=== PATIENT | female | born 2000 | race Caucasian/White ===

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

== ENCOUNTER 2019-01-09 17:35 | Outpatient (CLI) | payer OTHER ==
--- NOTE | 2019-01-10 13:30 | MRI Report ---
Reason: PAIN IN LT KNEE Procedure Date: 01/09/2019 Accession Number: [id number] / [id number] Procedure: MRI - Knee LT W/O CPT Code: Final Report FULL RESULT: EXAM: LEFT KNEE MRI WITHOUT CONTRAST EXAM DATE: 01/09/2019 06:37 PM. CLINICAL HISTORY: Left knee pain. Previous meniscal repair. COMPARISON: 03/06/2017. TECHNIQUE: Multiplanar, multisequence T1-weighted and fluid-sensitive sequences of the knee without contrast. Other: None. FINDINGS: Bones: No fractures or subluxations. No marrow edema. No bone lesions. Articular Cartilage: The articular cartilage in the medical compartment is mildly thinned. The lateral and patellofemoral articular cartilage is intact. Medial Meniscus: The medial meniscus is intact. Lateral Meniscus: At least a partial horizontal tear of the posterior horn/body junction remains and intersects the inferior articular surface (601/16; series 801/18). Cruciate Ligaments: The anterior and posterior cruciate ligaments are intact. Collateral Ligaments: The medial collateral and lateral collateral ligamentous structures are intact. Tendons: The quadriceps, patellar, semimembranosus, and popliteus tendons are unremarkable. Musculature: No edema or fatty atrophy. Other: No effusion. No popliteal cyst. No loose bodies. The medial and lateral retinacula are intact. The subcutaneous tissues and fat pads are unremarkable. IMPRESSION: 1. Mild medial chondromalacia. 2. A portion of the horizontal tear of the posterior horn/body of the lateral meniscus remains but it is less prominent than on the prior examination. [facility]
== END 2019-01-09 17:36 | disposition home or self-care (01) ==
LOC: DI 17:35
PROVIDERS: ATTEND Orthopaedic Surgery
DX: M94.262 Chondromalacia, left knee (principal); S83.282A Other tear of lateral meniscus, current injury, left knee, initial encounter

== ENCOUNTER 2020-01-09 18:40 | Outpatient (CLI) | payer OTHER ==
--- NOTE | 2020-01-09 21:38 | Ultrasound Report ---
PROCEDURE: Retroperitoneal INDICATIONS: RECURRENT UTI TECHNIQUE: Real-time scanning was performed of the retroperitoneal organs, with image documentation. COMPARISON: None. FINDINGS: Kidneys: Kidneys are normal in size. Right kidney measures 9.6 cm long; left kidney measures 9.3 cm long. Right renal cortical thickness is 2.1 cm; left renal cortical thickness is 2.0. cm. No solid masses, hydronephrosis, or nephrolithiasis. Miscellaneous: No free abdominal fluid. Bilateral ureteral jets are visualized. No abnormal post vo id residual. IMPRESSION: Source of recurrent urinary tract infections is not found. No hydronephrosis or nephrolithiasis is se en. Reviewed by: Joshua Coffey MD on 01/09/2020 9:37 PM PST Approved by: Joshua Coffey MD on 01/09/2020 9:37 PM PST Station ID: [id number]
== END 2020-01-09 18:41 | disposition home or self-care (01) ==
LOC: DI 18:40
PROVIDERS: ATTEND Physician Assistant
DX: N39.0 Urinary tract infection, site not specified (principal)

== ENCOUNTER 2020-11-17 08:00 | Outpatient (CLI) | payer OTHER | END 2020-11-17 23:59 | disposition home or self-care (01) | LOC: LAB 08:00 | PROVIDERS: ATTEND Family Medicine | DX: R30.0 Dysuria (principal) | CPT/HCPCS: 87086; 87181 ==

== ENCOUNTER 2020-11-17 17:31 | Outpatient (CLI) | payer OTHER ==
[2020-11-18 00:25] LABS: BACTERIAL VAGINOSIS DNA NEGATIVE (NEGATIVE); CANDIDA GLABRATA DNA NEGATIVE (NEGATIVE); CANDIDA GROUP DNA NEGATIVE (NEGATIVE); CANDIDA KRUSEI DNA NEGATIVE (NEGATIVE); TRICHOMONAS VAGINALIS DNA NEGATIVE (NEGATIVE)
[2020-11-18 01:30] LABS: CHLAMYDIA TRACHOMATIS DNA NEGATIVE (NEGATIVE); NEISSERIA GONORRHOEAE DNA NEGATIVE (NEGATIVE); TRICHOMONAS VAGINALIS DNA NEGATIVE (NEGATIVE)
== END 2020-11-17 23:59 | disposition home or self-care (01) ==
LOC: LAB 17:31
PROVIDERS: ATTEND Family Medicine
DX: N89.8 Other specified noninflammatory disorders of vagina (principal); R30.0 Dysuria
CPT/HCPCS: 87491; 87591; 87661; 87801

== ENCOUNTER 2020-12-09 08:00 | Outpatient (CLI) | payer OTHER | END 2020-12-09 23:59 | disposition home or self-care (01) | LOC: LAB 08:00 | PROVIDERS: ATTEND Family Medicine | DX: R30.0 Dysuria (principal) | CPT/HCPCS: 87086; 87181 ==

== ENCOUNTER 2021-02-08 08:00 | Outpatient (CLI) | payer OTHER | END 2021-02-08 23:59 | LOC: LAB 08:00 | PROVIDERS: ATTEND Physician Assistant | DX: R07.0 Pain in throat (principal); Z20.822 Contact with and (suspected) exposure to COVID-19 ==

== ENCOUNTER 2021-03-19 16:00 | Outpatient (CLI) | payer OTHER ==
[2021-03-19 19:31] LABS: BILIRUBIN,URINE NEGATIVE (NEGATIVE); GLUCOSE, URINE (UA) NEGATIVE (NEGATIVE); KETONES,URINE (UA) NEGATIVE (NEGATIVE); LEUKOCYTE ESTERASE, URINE TRACE (NEGATIVE); NITRITE,URINE POSITIVE (NEGATIVE); OCCULT BLOOD,URINE NEGATIVE (NEGATIVE); PROTEIN,URINE NEGATIVE (NEGATIVE); UROBILINOGEN,URINE 0.2 (NORMAL) E.U./dL (NORMAL)
[2021-03-19 19:37] LABS: CLARITY,URINE HAZY (CLEAR)
[2021-03-19 20:48] LABS: BACTERIA,URINE Many /HPF (None Seen); RBC,URINE None Seen /HPF (0-5); SQUAMOUS EPITHELIAL CELL,UR RARE Squamous (<= Few)
== END 2021-03-19 23:59 | disposition home or self-care (01) ==
LOC: LAB.N 16:00
PROVIDERS: ATTEND Registered Nurse
DX: R30.0 Dysuria (principal)
CPT/HCPCS: 81001; 87086; 87181

== ENCOUNTER 2021-04-07 09:05 | Outpatient (CLI) | payer OTHER ==
--- NOTE | 2021-04-08 11:37 | Ultrasound Report ---
LIMITED ULTRASOUND OF LEFT BREAST AND AXILLA: 04/07/2021 CLINICAL: Palpable left breast lump. No prior exams were available for comparison. Color flow and real-time ultrasound of the left breast 4 o'clock, and axilla regions were performed. Becerra scale images of the real-time examination were reviewed. There is a 1.8 cm x 1.8 cm x 0.7 cm oval mass with a circumscribed margin in the left breast at 4 o'c lock posterior depth 7 cm from the nipple. This oval mass is hypoechoic with a well-defined boundary and posterior acoustic enhancement. This correlates as palpated and to the reported pain. Color fl ow imaging demonstrates that there is vascularity present. Patient reports that the mass is increasin g in size. No significant abnormalities were seen sonographically in the left axilla. IMPRESSION: SUSPICIOUS OF MALIGNANCY The 1.8 cm x 1.8 cm x 0.7 cm oval mass in the left breast resembles a fibroadenoma and is at a low emanuel spicion for malignancy. An ultrasound guided biopsy is recommended. Exam findings were discussed with the patient by Dr. Sullivan. This exam was interpreted at Station ID: [id number]. Electronically Signed By: Ray Sullivan M.D. slc/:04/07/2021 10:25:36 Ultrasound BI-RADS: 4a Low suspicion for malignancy BI-RADS CATEGORY: (4a) - Low Susp None [id number] Immediate follow-up LATERALITY: ()
== END 2021-04-07 09:06 | disposition home or self-care (01) ==
LOC: DI 09:05
PROVIDERS: ATTEND Surgery
DX: N63.23 Unspecified lump in the left breast, lower outer quadrant (principal)

== ENCOUNTER 2021-06-07 09:38 | Day surgery (SDC) | payer OTHER ==
[~2021-06-07 09:38] MED LIST: ceFAZolin 1 GM VIAL ONE
[2021-06-07] MEDS ORDERED: LACTATED RINGERS 1,000 ML IV ONE ×2 (09:43→12:09)
[2021-06-07] MEDS ORDERED: LIDOCAINE-MPF 2% 5 ML VIAL ONE (10:03)
[2021-06-07] MEDS ORDERED: PROPOFOL 200 MG/20 ML VIAL IVP ONE (10:03)
[2021-06-07] MEDS ORDERED: MIDAZOLAM 2 MG/2 ML VIAL ONE (10:04)
[2021-06-07] MEDS ORDERED: fentaNYL 100 MCG/2 ML VIAL ONE (10:05)
[2021-06-07 10:07] LABS: HCG UR QUAL NEGATIVE
[2021-06-07] MEDS ORDERED: ONDANSETRON 4 MG/2 ML VIAL IVP PRN ×3 (10:25→12:12)
[2021-06-07] MEDS ORDERED: ePHEDrine 50 MG/ML VIAL IVP PRN (10:28)
[2021-06-07] MEDS ORDERED: MORPHINE 2 MG/ML CARPUJECT IVP PRN (10:28)
[2021-06-07] MEDS ORDERED: HYDROmorphone 0.5 MG/0.5 ML SYRINGE IVP PRN (10:28)
[2021-06-07] MEDS ORDERED: ATROPINE ABBOJECT 1 MG/10 ML SYRINGE IVP PRN (10:28)
[2021-06-07] MEDS ORDERED: METOCLOPRAMIDE 10 MG/2 ML VIAL IVP PRN (10:28)
[2021-06-07] MEDS ORDERED: NALOXONE 0.4 MG/ML VIAL IVP PRN (10:28)
[2021-06-07] MEDS ORDERED: fentaNYL 100 MCG/2 ML VIAL IVP PRN (10:28)
--- NOTE | 2021-06-07 10:28 | ANESTHESIA ---
Pre-Anesthesia VS, & Labs - Diagnosis Left breast mass - Procedure Left breast mass excision Vital Signs: Temp Pulse Resp BP Pulse Ox 37.5 C 127 H 13 127/79 100 06/07/21 09:48 06/07/21 09:48 06/07/21 09:48 06/07/21 09:48 06/07/21 09:48 Height: 5 ft Weight (kg): 48 kg Body Mass Index: 20.6 BMI Classification: Healthy weight - NPO >8 hours - Is Patient ?: No - Lab Results Lab results reviewed: Yes Home Medications and Allergies Home Medications: Ambulatory Orders cephALEXin [Keflex] 250 mg PO DAILY 06/07/21 cephALEXin [Keflex] 250 mg PO DAILY 06/07/21 Allergies/Adverse Reactions: Allergies Allergy/AdvReac Type Severity Reaction Status Date / Time polyethylene glycol Allergy Severe Rash Verified 05/31/21 10:19 nitrofurantoin Allergy Unknown Unknown Verified 05/31/21 08:33 [From Macrobid] oxycodone [From Roxicodone] Allergy Itching Verified 06/07/21 10:17 Sulfa (Sulfonamide Allergy Rash Verified 09/23/18 01:30 Antibiotics) Anes History & Medical History - Anesthetic History Anesthesia Complications: reports: No previous complications, Post-Operative Nausea/Vomiting Family history of Anesthesia Complications: Denies Family history of Malignant Hyperthermia: Denies - Medical History Cardiovascular: reports: None Pulmonary: reports: None Gastrointestinal: reports: None Urinary: reports: None Musculoskeletal: reports: Other (knee scope x2) Endocrine/Autoimmune: reports: None Skin: reports: None Smoking Status: Never smoker Psychosocial: reports: No issues indicated History of Cancer?: No - Surgical History Orthopedic: reports: Arthroscopic surgery Exam General: Alert, Oriented x3, Cooperative Dental: WNL Mouth Openin Fingerbreadth Neck Mobility: Normal Mallampati classification: II Thyromental Distance: 4-6 cm Respiratory: Lungs clear, Normal breath sounds, No respiratory distress Cardiovascular: Regular rate Neurological: Normal speech Mental/Cognitive Status: Alert/Oriented X3, Normal for patient Cognitive Status: Within normal limits Plan Anesthesia Type: General Consent for Procedure(s) Verified and Reviewed: Yes Code Status: Attempt Resuscitation ASA classification: 1-Healthy patient Is this case an emergency?: No
[2021-06-07] MEDS ORDERED: ONDANSETRON 4 MG/2 ML VIAL ONE ×2 (10:32→11:58)
[2021-06-07] MEDS ORDERED: LACTATED RINGERS 1,000 ML IV SCH (11:00)
[2021-06-07] MEDS ORDERED: LIDOCAINE 2%-EPI 1:100000 20 ML MDV ONE (11:01)
[2021-06-07] MEDS ORDERED: BUPIVACAINE 0.25% PF 10 ML VIAL ONE (11:01)
[2021-06-07] MEDS ORDERED: LIDOCAINE 2%-EPI 1:100000 20 ML MDV SUBQ ONE (11:53)
[2021-06-07] MEDS ORDERED: BUPIVACAINE 0.25% PF 30 ML VIAL SUBQ ONE (11:54)
[2021-06-07] MEDS ORDERED: DEXAMETHASONE 4 MG/ML VIAL ONE (11:58)
[2021-06-07] MEDS ORDERED: KETOROLAC 30 MG/ML VIAL ONE (12:00)
--- NOTE | 2021-06-07 12:07 | OPERATIVE REPORT ---
Operative Report - General Procedure Date: 06/07/21 Planned Procedure: Excisional biopsy of left breast mass Pre-Op Diagnosis: Palpable mass in the left breast Procedure Performed: Excisional biopsy of left breast mass Post Op Diagnosis: Palpable mass in the left breast - Procedure Note Primary Surgeon: Chris Anesthesia Provider: DOLLY Hennessy Anesthesia Technique: General LMA, Local Pathology: 1. Left breast mass oriented and submitted in formalin 2. Additional anterior superior margin.-Not oriented, submitted in formalin. Estimated Blood Loss (mL): 5 Findings: White rubbery mass consistent with fibroadenoma Complications: None apparent - Other Other Information/Narrative: After obtaining informed consent, the patient is brought to the operating room and placed in the supine position on the examination table. Following successful induction of general anesthesia, appropriate padding of all bony prominences, and placement of appropriate monitors, the left breast and chest were prepped and draped in the standard surgical fashion. A timeout was held per scope protocol. All elements of the surgical safety checklist were followed before, during, and after the procedure. We began the procedure by marking the natural inframammary fold and infiltrating a mixture of local anesthetics directly over the palpable mass just superior to this fold. An incision was created here with a 15 blade scalpel and carried down through the skin and subcutaneous tissue. The palpable mass was pushed into the incision and grasped with an Allis clamp. The mass was then sharply li berated from surrounding tissue. The primary mass was marked for orientation and passed from the table to be submitted in formalin. Examination of the remaining cavity were revealed tissue that was suspicious for additional fingers of fibroadenoma in the anterior superior margin. A second specimen in this area was obtained sharply and added to the formalin container. The wound was then checked for hemostasis. Additional local anesthetic was infiltrated into the opening. It was then closed in 2 layers of with Vicryl and Monocryl suture and Dermabond was applied to the skin. All sponge, needle, and instrument counts were correct at the conclusion of the case. The patient was allowed awaken from anesthesia without difficulty and taken to the postanesthesia care unit in good condition.
[2021-06-07] MEDS ORDERED: oxyCODONE 5 MG TABLET PO PRN (12:12)
[2021-06-07] MEDS ORDERED: IBUPROFEN 600 MG TABLET PO PRN (12:12)
[2021-06-07] MEDS ORDERED: ACETAMINOPHEN 325 MG TABLET PO PRN (12:12)
[2021-06-07 13:02] VITALS: BP 118/70
== END 2021-06-07 09:39 | disposition home or self-care (01) ==
LOC: SDS 09:38
PROVIDERS: ATTEND Surgery
PROC: 0HBU0ZZ Excision of Left Breast, Open Approach (ICD-10-PCS; principal; 2021-06-07 11:15)
DX: D24.2 Benign neoplasm of left breast (principal)
CPT/HCPCS: 19120; 81025; J7120

== ENCOUNTER 2021-12-15 13:01 | Outpatient (CLI) | payer OTHER ==
--- NOTE | 2021-12-16 16:42 | Ultrasound Report ---
LIMITED ULTRASOUND OF LEFT BREAST: 12/15/2021 CLINICAL: Palpable left breast lump. Comparison is made to exam dated: 04/07/2021 ultrasound - [facility]. Color flow ultrasound of the left breast 11-12 o'clock region was performed. There is a 1.2 cm x 0.9 cm x 0.5 cm irregular mass with an angular margin in the left breast at 11 o' clock 3 cm from the nipple. This irregular mass is hypoechoic. This correlates as palpated. IMPRESSION: SUSPICIOUS OF MALIGNANCY The 1.2 cm x 0.9 cm x 0.5 cm irregular mass in the left breast is at a low suspicion for malignancy. An ultrasound guided biopsy is recommended. This was discussed with the patient on the phone by Dr. Bean Monaco. This exam was interpreted at Station ID: [id number]. Electronically Signed By: Bean Monaco M.D. lc/:12/15/2021 14:10:40 Ultrasound BI-RADS: 4a Low suspicion for malignancy BI-RADS CATEGORY: (4a) - Low Susp Biopsy follow-up [id number] Immediate follow-up LATERALITY: (B)
== END 2021-12-15 13:02 | disposition home or self-care (01) ==
LOC: DI 13:01
PROVIDERS: ATTEND Surgery
DX: N63.22 Unspecified lump in the left breast, upper inner quadrant (principal)

== ENCOUNTER 2022-01-05 09:33 | Outpatient (CLI) | payer OTHER ==
[2022-01-05] MEDS ORDERED: lidocaine 1% 20 ML MDV ONE (09:41)
[2022-01-05] MEDS ORDERED: LIDOCAINE 1%-EPI 1:100000 20 ML MDV ONE (09:41)
[2022-01-05] MEDS ORDERED: LIDOCAINE 1%-EPI 1:100000 20 ML MDV SUBQ ONE (11:27)
[2022-01-05] MEDS ORDERED: lidocaine 1% 20 ML MDV SUBQ ONE (11:28)
--- NOTE | 2022-01-10 16:22 | Mammography Report ---
UNILATERAL LEFT DIGITAL DIAGNOSTIC MAMMOGRAM 3D/2D: 01/05/2022 CLINICAL: Clip placement L. Comparison is made to exams dated: 01/05/2022 ultrasound biopsy, 12/15/2021 ultrasound, and 04/07/2021 ultrasound - [facility]. The left breast is extremely dense, which lowers the sensitivity of mammography (category d />75% gla ndular tissue). There is a marker clip in the appropriate position in the left breast at 11 o'clock in the retroareol ar region 3 cm from the nipple. IMPRESSION: POST PROCEDURE MAMMOGRAM FOR MARKER PLACEMENT There was a successful marker clip placement in the left breast in the retroareolar region. Based on the Tyrer Cuzick model (a risk assessment model) the patients lifetime risk is 11.8% and he r 10 year risk is 0.1%. According to the ACR, ACS, and NCCN guidelines, an annual breast MRI exam maliha ng with mammogram is recommended if the patients lifetime risk is 20% or greater. This exam was interpreted at Station ID: [id number]. NOTE: For mammograms, a report in lay terms will be sent to the patient. Approximately 15% of breast malignancies will not be visualized mammographically. In the management of a palpable breast mass, a negative mammogram must not discourage biopsy of a clinically suspicious lesion. Electronically Signed By: Bean Monaco M.D. lc/:01/10/2022 16:02:34 ACR BI-RADS Category Post-procedure mammogram for marker placement PARENCHYMAL PATTERN: (VD) - The breast(s) demonstrate(s) extremely dense parenchyma, limiting the sen sitivity of mammography. BI-RADS CATEGORY: () - Unspecified - other recall n/a LATERALITY: (B)
--- NOTE | 2022-01-10 16:22 | Ultrasound Report ---
ULTRASOUND GUIDED BIOPSY LEFT BREAST WITH MARKING DEVICE INSERTED AND POST MAMMOGRAPHIC IMAGIN12/09 CLINICAL: Left breast mass. PATIENT CONSENT: Risks (minor bleeding, infection, vasovagal reaction and repeat procedure), benefits and alternatives were explained to the patient and written informed consent was obtained. Correlation is made to exams dated: 12/15/2021 ultrasound and 04/07/2021 ultrasound - [facility]. An ultrasound guided biopsy using real-time ultrasound was performed for the concerning mass located in the left breast at 11 o'clock middle depth. This was described on the previous ultrasound report. The skin was prepped in the usual manner. Local anesthetic was administered to the access site. A skin linn was made in the breast. An 18 gauge biopsy needle was placed adjacent to the abnormality under ultrasound guidance. Once the needle was documented to be in the correct location, five specim ens were obtained using a [employer] biopsy device. A clip was inserted into the biopsy cavity. Post proc edure mammographic imaging was obtained. The specimens were sent to the laboratory for pathological analysis. IMPRESSION: ULTRASOUND GUIDED BIOPSY BENIGN Ultrasound guided biopsy of the mass in the left breast at 11 o'clock middle depth was successful. P athology indicates benign fibrocystic changes (FC). Pathology results are concordant with imaging fi ndings. This exam was interpreted at Station ID: [id number]. Bean Monaco M.D. lc/:01/10/2022 16:06:14 BI-RADS CATEGORY: () - Unspecified - other recall n/a LATERALITY: (B)
== END 2022-01-05 09:34 | disposition home or self-care (01) ==
LOC: DI 09:33
PROVIDERS: ATTEND Surgery
DX: N60.12 Diffuse cystic mastopathy of left breast (principal)
CPT/HCPCS: 19083